=== PATIENT | male | born 1990 | race Caucasian/White ===

== ENCOUNTER 2021-03-09 20:00 | Emergency (ER) | payer OTHER ==
[2021-03-09 20:17] VITALS: TEMP 98.1
--- NOTE | 2021-03-09 20:30 | ED ---
General Adult HPI - General Chief complaint: Overdose Stated complaint: Overdose Time Seen by Provider: 03/09/21 20:05 Source: patient, EMS, RN notes reviewed Mode of arrival: EMS Limitations: no limitations - History of Present Illness Initial comments: Patient is a pleasant 30-year-old male presenting to the emergency department following an overdose. Patient admits to overdosing on heroin. Patient states prior to this he has been clean for the past couple of months. Patient states he was snorting heroin. Patient denies any suicidal attempt. Patient states he has no specific complaints at this time. Patient reportedly was unresponsive and improved with Narcan by EMS. - Related Data Home Medications Medication Instructions Recorded Confirmed Buprenorphine HCl/Naloxone HCl 2 - 3 film SL DAILY 03/09/21 03/09/21 [Buprenorp-Nalox 8-2 mg Sl Film] Allergies Allergy/AdvReac Type Severity Reaction Status Date / Time Penicillins Allergy Unknown Verified 03/09/21 20:58 Review of Systems ROS Statement: Those systems with pertinent positive or pertinent negative responses have been documented in the HPI. ROS Other: All systems not noted in ROS Statement are negative. Constitutional: Denies: fever Eyes: Denies: eye pain ENT: Denies: ear pain Respiratory: Denies: cough Cardiovascular: Denies: chest pain Endocrine: Denies: fatigue Gastrointestinal: Denies: abdominal pain Genitourinary: Denies: dysuria Musculoskeletal: Denies: back pain Skin: Denies: rash Neurological: Denies: weakness Past Medical History Additional Past Medical History / Comment(s): Overdose History of Any Multi-Drug Resistant Organisms: None Reported General Exam Limitations: no limitations General appearance: alert Head exam: Present: normocephalic Eye exam: Present: normal appearance, PERRL Neck exam: Present: normal inspection Respiratory exam: Present: normal lung sounds bilaterally Cardiovascular Exam: Present: regular rate, normal rhythm GI/Abdominal exam: Present: soft. Absent: tenderness Extremities exam: Present: normal inspection Neurological exam: Present: alert, oriented X3. Absent: motor sensory deficit Psychiatric exam: Present: normal affect, normal mood Skin exam: Absent: abrasion Course Vital Signs 03/09/21 03/09/21 20:09 21:07 Temperature 98.1 F Pulse Rate 77 75 Respiratory 15 16 Rate Blood Pressure 108/82 112/79 O2 Sat by Pulse 100 99 Oximetry Medical Decision Making - Medical Decision Making Patient reevaluated and alert and appropriate. Patient has steady gait. Disposition Clinical Impression: Heroin overdose Disposition: HOME SELF-CARE Condition: Stable Instructions (If sedation given, give patient instructions): Adult Overdose (ED) Additional Instructions: Discontinue drug use. Please follow-up with primary care physician in the next day or 2 for recheck. Return for any worsening symptoms or other concerns. Is patient prescribed a controlled substance at d/c from ED?: No Referrals: Ramon Haynes MD [REFERRING] - 1-2 days Time of Disposition: 21:24
[2021-03-09 22:07] VITALS: BP 112/79; PULSE 75; RESP 16
== END 2021-03-09 21:41 | disposition home or self-care (01) ==
LOC: EC 20:00
DX: T40.1X1A Poisoning by heroin, accidental (unintentional), initial encounter (principal)
CPT/HCPCS: 99284